=== PATIENT | male | born 1955 | race African-American/Black ===

== ENCOUNTER 2017-10-04 08:00 | Outpatient (CLI) | payer BC | END 2017-10-04 08:01 | disposition home or self-care (01) | LOC: BICULT 08:00 | PROVIDERS: ATTEND Urology | DX: N18.9 Chronic kidney disease, unspecified (principal); N40.0 Benign prostatic hyperplasia without lower urinary tract symptoms; N32.89 Other specified disorders of bladder; Z87.442 Personal history of urinary calculi | CPT/HCPCS: 76770 ==

== ENCOUNTER 2018-03-15 00:58 | Observation (INO) | payer BC ==
[2018-03-15 01:47] LABS: Bilirubin Negative (Negative); Blood, Urine Negative (Negative); Clarity CLEAR (Clear); Glucose, Urine (Dipstick) 100 mg/dL (Negative); Leukocyte Negative (Negative); Nitrite Negative (Negative); Protein, Urine (Dipstick) Negative (Neg-Trace); Specific Gravity, Urine 1.009 (1.002-1.036); Urobilinogen 0.2 mg/dL (0.2-1.0)
[2018-03-15 02:03] LABS: #Eosinphils 0.1 thou/uL (0.0-0.7); #Lymphocytes 1.1 thou/uL (1.20-3.40); #Monocytes 0.4 thou/uL (0.11-0.59); #Neutrophils 3.1 thou/uL (1.40-6.50); Hemoglobin 13.9 g/dL (14.0-18.0); Mean Corpuscular HGB CONC 34.4 g/dL (32.0-36.0); Mean Corpuscular Hemoglobin 31.2 pg (27.0-31.0); Mean Corpuscular Volume 90.9 fL (78.0-98.0); Mean Platelet Volume 9.8 fL (7.4-10.4); Platelet Count 130 thou/uL (130-400); RBC Distribution Width 11.2 % (11.5-14.5); Red Blood Cell (RBC) Count 4.44 mill/uL (4.70-6.10); White Blood Cell (WBC) Count 4.7 thou/uL (4.8-10.8)
[2018-03-15 02:14] LABS: ALT (SGPT) 18 U/L (8-55); AST (SGOT) 16 U/L (5-34); Albumin 4.1 g/dL (3.5-5.0); Alkaline Phosphatase 60 U/L (40-150); Anion Gap 13 mmol/L (10-20); BUN (Urea Nitrogen) 39 mg/dL (8.4-25.7); Bilirubin, Total 1.8 mg/dL (0.2-1.2); Calc. Creatinine Clearance 0 mL/min (70-130); Calcium 9.3 mg/dL (7.8-10.44); Carbon Dioxide 30 mmol/L (22-29); Chloride 106 mmol/L (98-107); Estimated GFR-MDRD 28; Globulin 2.2 g/dL (2.4-3.5); Glucose 126 mg/dL (70-105); Lipase 31 U/L (8-78); Potassium 4.3 mmol/L (3.5-5.1); Protein, Total 6.3 g/dL (6.0-8.3); Sodium 145 mmol/L (136-145)
[2018-03-15] MEDS ORDERED: Lidocaine Viscous Sol 2% 15 ml UD Cup ONE (03:56)
[2018-03-15] MEDS ORDERED: Ondansetron ODT 4 MG TAB SL PRN (06:00)
[2018-03-15] MEDS ORDERED: Acetaminophen 325 MG TAB PO PRN ×2 (06:00→09:29)
[2018-03-15] MEDS ORDERED: Ondansetron HCl/PF 4 MG/2 ML Vial IVP PRN ×2 (06:00→09:29)
--- NOTE | 2018-03-15 09:15 | ULT ---
PRELIMINARY REPORT/[facility]/EMERGENTY AFTER-HOURS PROCEDURE US Retroperitoneal Complete CLINICAL HISTORY: 62 years old, male; Difficulty emptying bladder; Abdominal pain; right flank pain HX kidney stones TECHNIQUE: Real-time ultrasound of the retroperitoneum (complete) with image documentation. COMPARISON: No relevant prior studies available. FINDINGS: The right kidney measures 12.6 cm longitudinally. The left kidney measures 12.9 cm longitudinally. Normal renal cortical echogenicity. Moderate right hydronephrosis. Severe left hydronephrosis. No calcified renal stones. No perinephric fluid collections. Prostate gland measures 4.0 x 3.5 x 7.8 cm. Prevoid bladder volume is 680 ml. Ureteral jets were not visualized. IMPRESSION: Moderate right hydronephrosis. Severe left hydronephrosis. Prevoid bladder volume is 680 ml. Thank you for allowing us to participate in the care of your patient. Dictated and Authenticated by: Chace Garcia MD 03/15/2018 5:06 AM Central Time ([place] & [place]) FINAL REPORT RENAL ULTRASOUND: HISTORY: Acute kidney insufficiency. COMPARISON: None. TECHNIQUE: Sagittal and transverse imaging of the kidneys performed. FINDINGS: This report is in agreement with the preliminary report by [facility]. There is evidence of bilateral hydro nephrosis, left slightly greater than right. There is also dilatation in the visualized proximal rig ht ureter. Urinary bladder is distended. Neither ureteral jet is identified. There is an enlarged prostate gla nd. POS: [facility]
[2018-03-15] MEDS ORDERED: hydrALAZINE 20 MG/ML VIAL SLOW IVP PRN (09:29)
[2018-03-15] MEDS ORDERED: Mag-Al 1200 mg/1200 mg/30 ML UDCUP PO PRN (09:29)
[2018-03-15] MEDS ORDERED: Senokot 8.6 MG TAB PO PRN (09:29)
[2018-03-15] MEDS ORDERED: Ondansetron ODT 4 MG TAB PO PRN (09:29)
[2018-03-15] MEDS ORDERED: Artificial Tears 18 DROP/0.9 ML EA EYE PRN (09:29)
[2018-03-15] MEDS ORDERED: Diabetic Tussin 200 MG/10 ML UDCUP PO PRN (09:29)
[2018-03-15] MEDS ORDERED: Loratadine 10 MG TAB PO PRN (09:29)
[2018-03-15] MEDS ORDERED: Loperamide HCl 2 MG CAP PO PRN (09:29)
[2018-03-15] MEDS ORDERED: HYDROcodone/Acetaminophen 5/325 mg Tablet PO PRN (09:29)
[2018-03-15] MEDS ORDERED: Sodium Chloride 0.65% Nasal 44 ML BOT EA NARE PRN (09:29)
[2018-03-15] MEDS ORDERED: Zolpidem Tartrate 5 MG TAB PO PRN (09:29)
[2018-03-15] MEDS ORDERED: Eucerin (Mineral Oil/Petrolatum,White) 30 gm Jar TOP PRN (09:29)
[2018-03-15] MEDS ORDERED: Milk Of Magnesia 30 ML UDCUP PO PRN (09:29)
[2018-03-15] MEDS ORDERED: Chloraseptic Spray 180 ml Bottle PO PRN (09:29)
[2018-03-15] MEDS: Sodium Chloride 0.9% 1,000 ML IV SCH ×2 (09:58→20:35)
[2018-03-15 10:06] VITALS: BMI 28.0
[2018-03-15] MEDS ORDERED: Dextrose 5% in Water 1,000 ML IV PRN (10:30)
[2018-03-15] MEDS ORDERED: HumaLOG 300 UNITS/3 ML VIAL SC PRN ×2 (10:30)
[2018-03-15] MEDS ORDERED: Dextrose 50% Abboject 50 ML SYRINGE SLOW IVP PRN (10:30)
--- NOTE | 2018-03-15 12:01 | CON ---
DATE OF CONSULTATION: 03/15/2018 HISTORY: Mr. Brody is a 62-year-old white male with known history of chronic renal failure second alfred to diabetic nephropathy and admitted for abdominal pain. He was found to have obstructive uropat hy secondary to presumed low bladder outlet obstruction. He was initially seen at the ER due to abdo tran pain. A Salazar catheter has been inserted and he has made copious urine output after insertion of the Salazar catheter. Renal ultrasound shows bilateral hydronephrosis. This patient has also a [facility] history of BPH. He is being followed up by Dr. Frankel. He has been told that he may need a TURP in the near future. We are being consulted for his acute kidney injury on top of his chronic renal failure. REVIEW OF SYSTEMS: Positive for abdominal pain. No chest pain or shortness of breath, no nausea, no vomiting. Appetite fair. Energy levels is fair. No headache, no diplopia, no gross hematuria, no dysuria, no hematochezia, no melena, no hematemesis, no sore throat, no fever or chills. HOME MEDICATIONS: NovoLog 70/30, 24 units in the morning and 20 units at night, tamsulosin 0.4 mg on ce a day, tadalafil 5 mg tab daily, aspirin 81 mg once a day, glucosamine 1 tablet a day, vitamin D3 2000 international units 1 tab daily, flaxseed daily, fish oil 1500 mg daily, multivitamin daily. PAST MEDICAL HISTORY: 1. Chronic renal failure secondary to presumed diabetic nephropathy. 2. Nephrolithiasis. 3. Benign prostatic hypertrophy. 4. Type 2 diabetes mellitus. 5. Degenerative joint disease. 6. Decreased vitamin D level. PAST SURGICAL HISTORY: Status post colonoscopy. SOCIAL HISTORY: The patient is , lives in [place]. 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 Three children. No history of smoking, alcohol occasional. No drug abuse. No bl ood transfusion. FAMILY HISTORY: No family history of ESRD. ALLERGIES: None. TRAUMA: Status post pelvic fracture/right scapular fracture secondary to a back injury. IMMUNIZATIONS: Up to date. HOSPITALIZATIONS: Please see past medical history. PHYSICAL EXAMINATION: VITAL SIGNS: Blood pressure is currently noted at 133/79, heart rate 63, respiratory rate 16, temper ature 98.4. GENERAL: Noted to be awake, alert, comfortable, not in distress. SKIN: Adequate turgor. HEENT: Pinkish conjunctivae, anicteric sclerae. NECK: No neck mass, no carotid bruits, no JVD. CHEST: No deformities. LUNGS: Clear breath sounds, no wheezing, no crackles. HEART: Normal sinus rhythm. No murmur, no gallops or rubs. ABDOMEN: Globular, soft, nontender, no masses. Positive bowel sounds. EXTREMITIES: No edema, no deformities. NEUROLOGIC: Moving all extremities. No tremors, no asterixis. IMAGIN03/15/2018 - Bilateral renal ultrasound shows the urinary bladder is distended. There is a n enlarged prostate gland and there is bilateral hydronephrosis and there is also dilatation of the v isualized proximal right ureter. LABORATORY: On 03/15/2018 - White count 4.7, hemoglobin 13.9. Sodium 145, potassium 4.2, chloride 1 06, carbon dioxide 30, BUN 39, creatinine 2.77, calcium 9.3, AST 16, ALT 18. PSA 2.8, lipase 31. 01/04/2018 - Creatinine 1.76. 07/06/2017 - Creatinine 1.44. Urinalysis, protein negative. ASSESSMENT AND PLAN: 1. Acute kidney injury - superimposed obstructive uropathy. He most likely has a low bladder outlet obstruction. Salazar catheter has been inserted. I do anticipate improvement of the renal function. 2. Chronic renal failure, unclear etiology, although diabetic nephropathy is a consideration. A luda al biopsy has been mentioned to this patient, but he is declining for the moment. There is no indication for any dialytic intervention. Continue current management. Awaiting Urology input. The patient tells me that he may need a TURP. Thank you for the consult. We will continue to follow.
--- NOTE | 2018-03-15 14:11 | HP ---
PRIMARY CARE PHYSICIAN: City call admission. REASON FOR ADMISSION: Acute on chronic kidney failure, bilateral hydronephrosis, urinary retention. HISTORY OF PRESENT ILLNESS: A 62-year-old male, who has history of benign enlargement of prostate an d diabetes type 2, who takes Flomax daily as well as Cialis daily. The patient feels that this medic ation is not controlling his BPH symptoms. Yesterday during daytime, he was having lower grade diffu se abdominal pain, more on the right side, but it was not significantly worse enough to require any a ttention. He went to work and when he returned from work around 9:00 p.m., his pain was gradually go tten worse and by midnight, his pain localized in the right side and it was more intense and he was n ot able to handle his pain and that is why he decided to go to the emergency room for evaluation. The patient had renal ultrasound in the emergency room, which showed moderate right hydronephrosis an d severe left hydronephrosis and bladder volume was 680 mL. The patient had a Salazar catheter done in the emergency room and after that significant amount of urine came out and after that the patient's abdominal pain resolved. The patient had routine blood test, which also showed acute on chronic kidn ey failure and that is why patient was decided in emergency room to admit to medical floor for monito ring. He denies any UTI symptoms. He denies any fever or chills. He denies any nausea or vomiting. He de nies any chest pain, palpitation, shortness of breath. He denies any cough. He denies any constipat ion, diarrhea, melena, or hematochezia. REVIEW OF SYSTEMS: The following complete review of systems was negative, unless otherwise mentioned in the HPI or below: Constitutional: Weight loss or gain, ability to conduct usual activities. Skin: Rash, itching. Eyes: Double vision, pain. ENT/Mouth: Nose bleeding, neck stiffness, pain, tenderness. Cardiovascular: Palpitations, dyspnea on exertion, orthopnea. Respiratory: Shortness of breath, wheezing, cough, hemoptysis, fever or night sweats. Gastrointestinal: Poor appetite, abdominal pain, heartburn, nausea, vomiting, constipation, or diarr hea. Genitourinary: Urgency, frequency, dysuria, nocturia. Musculoskeletal: Pain, swelling. Neurologic/Psychiatric: Anxiety, depression. Allergy/Immunologic: Skin rash, bleeding tendency. Please see my HPI for pertinent positive and negative. All other review of system reviewed and negat corey except as mentioned in the HPI. PAST MEDICAL HISTORY: History of nephrolithiasis, diabetes type 2, benign enlargement of prostate. PAST SURGICAL HISTORY: Tonsillectomy, wisdom tooth removal. PAST PSYCHIATRIC HISTORY: Reviewed and negative. SOCIAL HISTORY: The patient drinks alcohol socially. He denies any smoking. He denies any other ill icit drug abuse. 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 FAMILY HISTORY: No strong family history of premature coronary artery disease, stroke or cancer. EMERGENCY ROOM COURSE: Reviewed. ALLERGIES: No known drug allergy. CURRENT HOME MEDICATIONS: Flomax 0.4 mg p.o. daily, Cialis 5 mg p.o. daily, Novolin 70/30, 25 units in morning and 20 units in the evening. PHYSICAL EXAMINATION: VITAL SIGNS: On arrival, blood pressure 153/91, pulse 73, respiratory rate 16, temperature 98.2, sat uration 95% on room air, weight 99.7 kilograms. GENERAL: Patient is currently alert, awake, no obvious acute distress. HEENT: Head: Normocephalic, atraumatic. Eyes: Pupils round, reactive to light. Extraocular muscl e intact. ENT: Oropharynx within normal limits. Moist mucous membranes. No oral lesion, no pharyn geal erythema, no exudate. NECK: Supple, no JVD, no thyromegaly, no carotid bruit, no jugular venous distention. LUNGS: Clear to auscultation without any rhonchi or rales. CARDIAC: S1, S2 regular. No murmur, no gallop, no rub. ABDOMEN: Soft, bowel sounds present, nontender, nondistended. No organomegaly, no mass, no suprapub ic tenderness. BACK: Unremarkable, no CVA tenderness. EXTREMITIES: Upper extremity passive movement of all joints are normal. Lower extremities: No matthias a. Good peripheral pulsation. SKIN: No skin rash. HEMATOLOGICAL: No lymphadenopathy. PSYCHIATRIC: Normal affect. NEUROLOGIC: Nonfocal examination. SIGNIFICANT LABORATORY DATA: 1. Renal ultrasound showing moderate right hydronephrosis severe left hydronephrosis. Prevoid bladd er volume 680 mL. 2. CBC: WBC 4.7, hemoglobin 13.9, platelet 130. 3. BMP: Sodium 145, potassium 4.3, chloride 106, carbon dioxide 30, anion gap 13, BUN 39, creatinin e 2.77, glucose 126, calcium 9.3. 4. LFT: Bilirubin 1.8, AST 16, ALT 18, alkaline phosphatase 60, lipase 31. Urinalysis unremarkable . ASSESSMENT AND PLAN: 1. Acute on chronic kidney failure, baseline chronic kidney disease stage 3. This patient has posto bstructive nephropathy, currently patient has hydronephrosis and retention. After Salazar catheter, th e patient is at risk for post-obstructive diuresis and worsening of renal function and that is why ming lindsay will require admission for hydration and monitoring of post-obstructive volume. We will repeat the renal function test tomorrow. We will continue with NS at 100 mL per hour. We will avoid nephr otoxin agent. 2. Benign enlargement of prostate with urinary retention, requiring Salazar catheter. Urology consult ed. The patient may need to go home with a Salazar catheter and he will need outpatient follow up with Urology for voiding trial or the patient will need to go for TURP procedure. As patient is no longe r responding to Flomax and Cialis and he has worsening of symptoms. 3. Diabetes type 2. We will continue insulin as per sliding scale per protocol, Novolin 70/30, 25 u nits in morning and 20 units in evening will be continued. Diabetic diet will be given. 4. Acute urinary retention due to benign enlargement of prostate as mentioned above. We put a Salazar catheter in and the patient will need Salazar catheter and outpatient urology followup. 5. Bilateral hydronephrosis, left worse than right, likely due to obstructive uropathy, the patient is followed by Urology. 6. Deep venous thrombosis prophylaxis not needed because we are expecting discharge in 24-48 hours. 7. Gastrointestinal prophylaxis, Pepcid 20 mg p.o. daily. CODE STATUS: The patient is FULL CODE. The patient is making decision by himself. Disposition plan based on clinical course and renal function. Plan of care discussed with the patien t in detail. We will also continue his benign enlargement of prostate medication while in hospital w ith Flomax and Cialis.
--- NOTE | 2018-03-15 20:07 | CON ---
DATE OF CONSULTATION: 03/15/2018 CONSULTING PHYSICIAN: Dr. Hammond. CONSULTED PHYSICIAN: Raymundo Frankel M.D. REASON FOR CONSULTATION: Urinary retention with bilateral hydronephrosis and acute kidney injury. HISTORY OF PRESENT ILLNESS: Mr. Brody is a 62-year-old white male who is well known to me for a l ivan history of BPH with incomplete emptying. I have been following him for a number of years and had recommended previously to him that he should consider TURP and more aggressive treatment. He has be en reluctant to pursue this and had elected to continue on with a current medical management which snyder d consisted of Flomax and Cialis, which he stated was working quite well for him. He had a renal ult rasound done approximately 6 months ago which demonstrated no evidence of hydronephrosis, although he still did not empty his bladder completely. Unfortunately, over the past 2-3 months, the patient snyder s had worsening urinary symptoms to the point where he started having incontinence in his bed at nigh t as well as significant difficulty with his urinary stream. This culminated to yesterday when he be malena having lower abdominal pain as well as right flank pain which brought him to the emergency room w hen it became fairly severe to around a 6/10 cramping and sensation and not improving with any conser vative measures or over the counter medications. Upon arrival to the ER, he underwent an ultrasound which demonstrated moderate right hydronephrosis and severe left hydronephrosis with a bladder volume of approximately 680 mL. Salazar catheter was placed and at that time with a brisk diuresis which sub sequently became bloody with hematuria. The ER physician was concerned given the patient's acute kid lg injury on chronic kidney disease with bilateral hydronephrosis for postobstructive diuresis. The refore, he was admitted to the hospital under the medicine service for monitoring of his electrolytes and kidney function. I have been consulted for further assistance regarding his urinary retention, hydronephrosis and prosthetic issues. On my discussion with the patient, he states he is feeling muc h better. He is not having any significant discomfort with his catheter. He denies any current flan k pain, abdominal pain or nausea or vomiting, fevers or chills. As previously been discussed his uri nary symptoms have been worsening despite taking his medications, which he reports being compliant wi . ALLERGIES: None. CURRENT HOME MEDICATIONS: 1. Flomax 0.4 mg p.o. daily. 2. Cialis 5 mg p.o. daily. 3. Novolin 70/30, 25 units q.a.m. and 20 units q.p.m. PAST MEDICAL HISTORY: 1. Nephrolithiasis. 2. Type 2 diabetes. 3. Benign prostatic hypertrophy. 4. Chronic kidney disease. PAST SURGICAL HISTORY: 1. Tonsillectomy. 2. [place] tooth removal. FAMILY HISTORY: Noncontributory for BPH, prostate cancer or urinary difficulties. SOCIAL HISTORY: Patient drinks alcohol only socially. Denies any significant alcohol intake, smokin g or illicit drug use. 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 REVIEW OF SYSTEMS: A 12-point review of systems was reviewed and otherwise negative other than what was commented on the HPI. He does not endorse any current bothersome symptoms at the current time. PHYSICAL EXAMINATION: VITAL SIGNS: Temperature 98.5, pulse 74, respirations 18, blood pressure 186/77, saturation 96% on r oom air. Ins and outs have not yet been recorded on this patient. GENERAL: No apparent distress, communicative and alert. Well-nourished, well-developed. HEENT: Normocephalic, atraumatic. Sclerae are nonicteric. Pupils are symmetric and round. Moist m ucous membranes. Good dentition. Trachea midline. CARDIOVASCULAR: Regular rate and rhythm. Normal S1, S2. Symmetric pulses. CHEST: No increased work of breathing. Clear to auscultation anteriorly. Nonlabored breathing. Sy mmetric expansion of lungs. ABDOMEN: Soft, nontender, nondistended, no organomegaly. Positive bowel sounds, no hernias. No berna ound, guarding, tenderness or peritoneal signs. GENITOURINARY: Salazar catheter in place, secured with StatLock with Miguel-Aid colored urine without cl ots. EXTREMITIES: No clubbing, cyanosis or edema. MUSCULOSKELETAL: No joint deformities or joint erythema noted. Range of motion appears to be normal . No gross deformities. SKIN: Warm, dry, good turgor, no rashes or lesions. NEUROLOGIC: Cranial nerves II-XII appear grossly intact. There are no obvious focal or sensory jonnie r deficits identified. PSYCHIATRIC: Alert and oriented x3, appropriate mood and affect for situation. LABORATORY AND X-RAY FINDINGS: The full set of labs in the [facility] system, which I reviewed. Of no te, patient's white count is currently 4.7 with a hemoglobin of 13.9, creatinine is currently 2.77 wi th a blood sugar 126. Urinalysis is completely normal other than 100 glucose. Renal ultrasound done in the ER again demonstrates moderate right hydronephrosis and severe left hydronephrosis with a pre -void bladder volume of 680 mL. Ureteral jets were not visualized. ASSESSMENT AND PLAN: A 62-year-old white male with BPH with incomplete bladder emptying with urinary retention resulting in bilateral hydronephrosis and acute kidney injury on chronic kidney disease. I would recommend close monitoring of his in's and out's to ensure that he is not having significant diuresis. So, as long as his urine output remains below 3.5 liters, I think the patient can keep up adequate oral intake to make sure he does not become dehydrated. I would recommend checking electrol ytes and his kidney function in the morning which Dr. Hammond is following and can handle. From my stand point, I would recommend that he keep a Salazar catheter in for at least 7 days to allow for normalizat ion of his bladder function and resolution of his hematuria. I would like to see that his hematuria improved somewhat as it is quite red currently before going home. He does not have to have no hematu sindy, but I think it would be prudent to monitor him to ensure that he does not deform any blood clots within his catheter. Ultimately, I do agree the patient will likely need a TURP as he is failing me dical therapy with significant and potential dangers complications which may include worsening renal function or potential permanent damage to his bladder as he is diabetic and may suffer either neuroge becka or myogenic bladder failure. Some of this may have already happened at this point, but we will n ot be able to tell until we were able to perform a voiding trial and monitor him as an outpatient, wh [facility] I will continue to follow him for. I will plan for him to have a voiding trial sometime next k and we will set him up for cystoscopy subsequent to that and then set him up for TURP afterwards. I will discuss the treatment options with him during this time and have outlined the plan with him to day which he is in agreement with. He should remain on his Flomax and Cialis currently, so that he m ay be optimized for his voiding trial next week. I will continue to follow along and make recommenda tions. SUMMARY OF RECOMMENDATIONS: 1. Continue Flomax and Cialis as scheduled. 2. Continue Salazar catheter for at least 7 days. We will arrange for followup in my office for a voi d trial. 3. We would not recommend discharge until the patient's hematuria improved somewhat. He does not ne ed to be completely clear, but should be at least a translucent pink or better. 4. Will continue to follow.
[2018-03-15] MEDS ORDERED: Insulin NPH/Reg Insulin Hm 300 UNITS/3 ML VIAL SC SCH (21:00)
[2018-03-15] MEDS ORDERED: NOVOLOG SC SCH (21:30)
[2018-03-15] MEDS ORDERED: INSULIN SC SCH (21:30)
[2018-03-16 06:27] LABS: ALT (SGPT) 13 U/L (8-55); AST (SGOT) 12 U/L (5-34); Albumin 3.7 g/dL (3.5-5.0); Alkaline Phosphatase 56 U/L (40-150); Anion Gap 11 mmol/L (10-20); BUN (Urea Nitrogen) 29 mg/dL (8.4-25.7); Bilirubin, Total 2.9 mg/dL (0.2-1.2); Calc. Creatinine Clearance 48 mL/min (70-130); Calcium 8.7 mg/dL (7.8-10.44); Carbon Dioxide 29 mmol/L (22-29); Chloride 106 mmol/L (98-107); Estimated GFR-MDRD 34; Globulin 2.1 g/dL (2.4-3.5); Glucose 258 mg/dL (70-105); Potassium 4.4 mmol/L (3.5-5.1); Protein, Total 5.8 g/dL (6.0-8.3); Sodium 142 mmol/L (136-145)
[2018-03-16 06:35] LABS: #Basophils 0.1 thou/uL (0.0-0.2); #Eosinphils 0.1 thou/uL (0.0-0.7); #Lymphocytes 1.2 thou/uL (1.20-3.40); #Monocytes 0.5 thou/uL (0.11-0.59); #Neutrophils 3.7 thou/uL (1.40-6.50); %Basophils 1.1 % (0.0-1.0); %Eosinophils 1.9 % (0.0-10.0); %Monocytes 9.1 % (0.0-10.0); Hemoglobin 13.8 g/dL (14.0-18.0); Mean Corpuscular HGB CONC 34.2 g/dL (32.0-36.0); Mean Corpuscular Hemoglobin 31.2 pg (27.0-31.0); Mean Corpuscular Volume 91.1 fL (78.0-98.0); Mean Platelet Volume 10.3 fL (7.4-10.4); Platelet Count 122 thou/uL (130-400); RBC Distribution Width 11.2 % (11.5-14.5); Red Blood Cell (RBC) Count 4.44 mill/uL (4.70-6.10); White Blood Cell (WBC) Count 5.6 thou/uL (4.8-10.8)
[2018-03-16] MEDS: Sodium Chloride 0.9% 1,000 ML IV SCH (06:45)
[2018-03-16] MEDS ORDERED: Famotidine 20 MG TAB PO SCH (09:00)
[2018-03-16] MEDS ORDERED: TADALAFIL 6 MG PO SCH ×2 (09:00)
[2018-03-16] MEDS ORDERED: Tamsulosin HCl 0.4 MG CAP PO SCH (09:00)
[2018-03-16] MEDS ORDERED: Insulin NPH/Reg Insulin Hm 300 UNITS/3 ML VIAL SC SCH (09:00)
--- NOTE | 2018-03-16 09:32 | PDOC.PN ---
- Subjective Encounter Start Date: 03/16/18 Encounter Start Time: 07:30 Patient seen and examined. No new complaints. No overnight events - Objective Resuscitation Status: Resuscitation Status FULL:Full Resuscitation MAR Reviewed: Yes Vital Signs & Weight: Vital Signs (12 hours) Temp Pulse Resp BP Pulse Ox 03/16/18 07:40 98.1 F 64 12 135/88 96 03/16/18 04:00 98.5 F 68 16 147/81 H 94 L 03/16/18 00:00 98.1 F 63 16 129/81 95 Weight Weight 224 lb 11.2 oz I&O: 03/15/18 03/16/18 03/17/18 06:59 06:59 06:59 Intake Total 2630 1920 Output Total 3800 1300 Balance -1170 620 Result Diagrams: 03/16/18 05:02 03/16/18 05:02 Additional Labs: Accuchecks 03/16/18 03/15/18 03/15/18 06:09 20:36 15:12 POC Glucose 253 H 308 H 263 H 03/15/18 11:03 POC Glucose 317 H Phys Exam - Physical Examination Constitutional: NAD HEENT: PERRLA, moist MMs, sclera anicteric Neck: no JVD, supple Respiratory: no wheezing, no rales, no rhonchi Cardiovascular: RRR, no significant murmur, no rub Gastrointestinal: soft, non-tender, no distention, positive bowel sounds Musculoskeletal: no edema, pulses present Neurological: non-focal, normal sensation Lymphatic: no nodes Psychiatric: normal affect, A&O x 3 Skin: no rash, normal turgor Dx/Plan (1) Acute renal failure superimposed on stage 3 chronic kidney disease Code(s): N17.9 - ACUTE KIDNEY FAILURE, UNSPECIFIED; N18.3 - CHRONIC KIDNEY DISEASE, STAGE 3 (MODERATE) Status: Acute (2) Hydronephrosis, bilateral Code(s): N13.30 - UNSPECIFIED HYDRONEPHROSIS Status: Acute (3) Urinary retention due to benign prostatic hyperplasia Code(s): N40.1 - BENIGN PROSTATIC HYPERPLASIA WITH LOWER URINARY TRACT SYMP; R33.8 - OTHER RETENTION OF URINE Status: Acute (4) Diabetes type 2, controlled Code(s): E11.9 - TYPE 2 DIABETES MELLITUS WITHOUT COMPLICATIONS Status: Chronic - Plan cont current plan of care * medication reviewed as below * symptomatic treatment * medically stable for discharge * discharge medication reconciliation done. * see discharge summery for details. Review of Systems - Review of Systems Eyes: negative: Pain, Vision Change, Conjunctivae Inflammation, Eyelid Inflammation, Redness, Other ENT: negative: Ear Pain, Ear Discharge, Nose Pain, Nose Discharge, Nose Congestion, Mouth Pain, Mouth Swelling, Throat Pain, Throat Swelling, Other Respiratory: negative: Cough, Dry, Shortness of Breath, Hemoptysis, SOB with Excertion, Pleuritic Pain, Sputum, Wheezing Cardiovascular: negative: chest pain, palpitations, orthopnea, paroxysmal nocturnal dyspnea, edema, light headedness, other Gastrointestinal: negative: Nausea, Vomiting, Abdominal Pain, Diarrhea, Constipation, Melena, Hematochezia, Other Genitourinary: negative: Dysuria, Frequency, Incontinence, Hematuria, Retention , Other Musculoskeletal: negative: Neck Pain, Shoulder Pain, Arm Pain, Back Pain, Hand Pain, Leg Pain, Foot Pain, Other Skin: negative: Rash, Lesions, Florentin, Bruising, Other - Medications/Allergies Allergies/Adverse Reactions: Allergies Allergy/AdvReac Type Severity Reaction Status Date / Time No Known Allergies Allergy Verified 03/15/18 10:31 Medications: Current Medications Acetaminophen (Tylenol) 650 mg PO Q4H PRN PRN Reason: Headache/Fever or Pain Hydrocodone Bitart/Acetaminophen ([place] 5/325) 1 tab PO Q4H PRN PRN Reason: Moderate Pain (4-6) Al Hydroxide/Mg Hydroxide (Maalox) 30 ml PO Q6H PRN PRN Reason: Heartburn or Indigestion Artificial Tears (Tears Naturale) 0 drop EA EYE PRN PRN PRN Reason: Dry Eyes Dextrose/Water (Dextrose 50%) 25 gm SLOW IVP PRN PRN PRN Reason: Hypoglycemia Famotidine (Pepcid) 20 mg PO DAILY [facility] Last Admin: 03/16/18 08:48 Dose: 20 mg Glucagon (Glucagon) 1 mg IM PRN PRN PRN Reason: Hypoglycemia Guaifenesin (Robitussin Sf) 200 mg PO Q4H PRN PRN Reason: Cough Hydralazine HCl (Apresoline) 10 mg SLOW IVP Q4H PRN PRN Reason: Systolic BP > 180 Sodium Chloride (Normal Saline 0.9%) 1,000 mls @ 100 mls/hr IV .Q10H [facility] Last Admin: 03/16/18 06:45 Dose: 1,000 mls Dextrose/Water (D5w) 1,000 mls @ 0 mls/hr IV .Q0M PRN; As Directed PRN Reason: Hypoglycemia Insulin Human Isoph/Insulin Regular (Humulin 70/30) 20 units SC HS [facility] Last Admin: 03/15/18 21:11 Dose: Not Given Insulin Human Isoph/Insulin Regular (Humulin 70/30) 25 units SC QAM [facility] Last Admin: 03/16/18 08:49 Dose: Not Given Insulin Human Lispro (Humalog) 0 units SC .MODERATE SLIDING SC PRN PRN Reason: Moderate Correctional Scale Last Admin: 03/15/18 11:52 Dose: 8 unit Insulin Human Lispro (Humalog) 0 units SC .BEDTIME SLIDING SC PRN PRN Reason: Bedtime Correctional Scale Loperamide HCl (Imodium) 2 mg PO PRN PRN PRN Reason: Diarrhea/Loose Stools Loratadine (Claritin) 10 mg PO DAILYPRN PRN PRN Reason: Sinus Symptoms Magnesium Hydroxide (Milk Of Magnesium) 30 ml PO DAILYPRN PRN PRN Reason: Constipation Mineral Oil/White Petrolatum (Eucerin Cream) 0 gm TOP BIDPRN PRN PRN Reason: Dry Skin Ondansetron HCl (Zofran Odt) 4 mg PO Q6H PRN PRN Reason: Nausea/Vomiting Ondansetron HCl (Zofran) 4 mg IVP Q6H PRN PRN Reason: Nausea/Vomiting Phenol (Chloraseptic [place] 180 Ml Bot) 0 ml PO PRN PRN PRN Reason: Sore Throat Senna (Senokot) 2 tab PO HSPRN PRN PRN Reason: Constipation Sodium Chloride ([place] Nasal [place] 0.65%) 0 ml EA NARE QIDPRN PRN PRN Reason: Nasal Congestion Sodium Chloride (Flush - Normal Saline) 10 ml IVF Q12HR [facility] Last Admin: 03/16/18 08:49 Dose: Not Given Sodium Chloride (Flush - Normal Saline) 10 ml IVF PRN PRN PRN Reason: Saline Flush Tamsulosin HCl (Flomax) 0.4 mg PO DAILY [facility] Last Admin: 03/16/18 08:48 Dose: 0.4 mg Zolpidem Tartrate (Ambien) 5 mg PO HSPRN PRN PRN Reason: Insomnia
--- NOTE | 2018-03-16 10:36 | DIS ---
DATE OF ADMISSION: 03/15/2018 DATE OF DISCHARGE: 03/16/2018 PRIMARY CARE PHYSICIAN: [facility] call admission. DISCHARGE DISPOSITION: Home. PRIMARY DISCHARGE DIAGNOSES: Acute kidney failure on top of chronic kidney disease stage 3, bilatera l hydronephrosis, urinary retention due to benign enlargement of prostate. SECONDARY DISCHARGE DIAGNOSES: Diabetes type 2, benign enlargement of prostate. PRIMARY PROCEDURE AND OPERATION: None. RADIOLOGICAL INVESTIGATION: Renal ultrasound showed bilateral hydronephrosis, left more than right. SIGNIFICANT LABORATORY DATA: WBC 5.6, hemoglobin 13.8, platelet 122. Sodium 142, creatinine 2.35. LFT normal. Urinalysis unremarkable. Urine culture negative. DISCHARGE MEDICATIONS: Flomax 0.4 mg p.o. daily, Cialis 5 mg p.o. daily, Novolin 70/30, 25 units in the morning and 20 units at bedtime. CONTRAINDICATIONS: None. CODE STATUS: FULL CODE. INPATIENT CONSULTANTS: Dr. Hammond was consulted for renal failure. Dr. Frankel was consulted for benig n enlargement of prostate. TEST RESULTS PENDING ON DISCHARGE: None. ALLERGIES: No known drug allergy. DISCHARGE PLAN: Post hospital, the patient will follow up with primary care physician. The patient will make appointment with Dr. Frankel in 1 week. HOSPITAL COURSE: The patient is a 62-year-old male who has history of benign enlargement of prostate . He was on oral medication for that. He came to ER for abdominal pain, which has gradually gotten worse. The patient was admitted by me. Please see my HPI for further details. The patient had acut e urinary retention and after Salazar catheter, his abdominal pain improved. He had mild hematuria bec ause of bladder distention. We did ultrasound kidney, which showed moderate right hydronephrosis and severe left hydronephrosis. We consulted Urology and they recommended outpatient surgical procedure after a week or two. The patient's hematuria is clearing up and his renal function is also improvin g towards his baseline. While in hospital, we gave him enough IV fluid to prevent postobstructive di uresis and renal failure. The patient is also feeling much better. He was given instruction about Salazar care. The patient perico l follow up with Dr. Frankel after discharge for outpatient surgery. Patient is seen and examined at bedside today. Please see my progress note from today for further de tail.
[2018-03-16 11:51] VITALS: BP 149/82; TEMP 98.2
== END 2018-03-16 13:25 | disposition home or self-care (01) ==
LOC: ERS 00:58 → SURG A 09:07
PROVIDERS: ADMIT Internal Medicine; ATTEND Internal Medicine
DX: N13.30 Unspecified hydronephrosis (principal); E11.22 Type 2 diabetes mellitus with diabetic chronic kidney disease; N18.3 Chronic kidney disease, stage 3 (moderate); N17.9 Acute kidney failure, unspecified; N40.1 Benign prostatic hyperplasia with lower urinary tract symptoms; R33.8 Other retention of urine; M19.90 Unspecified osteoarthritis, unspecified site; E55.9 Vitamin D deficiency, unspecified; Z87.442 Personal history of urinary calculi; Z79.4 Long term (current) use of insulin; Z79.82 Long term (current) use of aspirin; Z79.899 Other long term (current) drug therapy
CPT/HCPCS: 36415; 36416; 51702; 76770; 80053; 81003; 83690; 85025; 87086; 96360; 96361; A4216; G0378; J0360

== ENCOUNTER 2018-03-23 14:50 | Outpatient (CLI) | payer BC ==
[2018-03-23 15:55] LABS: Hemoglobin 13.4 g/dL (14.0-18.0); Mean Corpuscular HGB CONC 34.9 g/dL (32.0-36.0); Mean Corpuscular Hemoglobin 31.5 pg (27.0-31.0); Mean Corpuscular Volume 90.2 fL (78.0-98.0); Mean Platelet Volume 10.2 fL (7.4-10.4); Platelet Count 155 thou/uL (130-400); RBC Distribution Width 11.2 % (11.5-14.5); Red Blood Cell (RBC) Count 4.26 mill/uL (4.70-6.10); White Blood Cell (WBC) Count 6.2 thou/uL (4.8-10.8)
[2018-03-23 16:01] LABS: PTT 28.4 SEC (22.9-36.1); Prothrombin Time 13.6 SEC (12.0-14.7)
[2018-03-23 16:02] LABS: Bilirubin Negative (Negative); Blood, Urine Large (Negative); Clarity CLEAR (Clear); Glucose, Urine (Dipstick) Negative (Negative); Leukocyte Trace (Negative); Nitrite Negative (Negative); Protein, Urine (Dipstick) 30 mg/dL (Neg-Trace); Specific Gravity, Urine 1.011 (1.002-1.036); Urobilinogen 0.2 mg/dL (0.2-1.0)
[2018-03-23 16:07] LABS: Bacteria/HPF None Seen HPF (None Seen); Hyaline Casts/LPF 0-3 HYALINE CAST LPF (0-3 Hyaline); Pathc Cast-AUWi Flag 0.29 (0-2.49); RBC/HPF GREATER THAN 50-TNTC HPF (0-3); Squamous Epithelial None Seen HPF (0-3); WBC/HPF 0-3 HPF (0-3)
[2018-03-23 16:14] LABS: Anion Gap 9 mmol/L (10-20); BUN (Urea Nitrogen) 27 mg/dL (8.4-25.7); Calc. Creatinine Clearance 0 mL/min (70-130); Carbon Dioxide 31 mmol/L (22-29); Chloride 103 mmol/L (98-107); Estimated GFR-MDRD 37; Glucose 119 mg/dL (70-105); Sodium 139 mmol/L (136-145)
--- NOTE | 2018-03-25 14:31 | EKG ---
Test Reason : Blood Pressure : / mmHG Vent. Rate : 071 BPM Atrial Rate : 071 BPM P-R Int : 176 ms QRS Dur : 090 ms QT Int : 396 ms P-R-T Axes : 065 049 032 degrees QTc Int : 430 ms Normal sinus rhythm Normal ECG No previous ECGs available Confirmed by DR. Sofie KEYES ([id number]) on 03/25/2018 2:31:14 PM Referred By: TIFFANY Confirmed By:DR. Sofie KEYES
== END 2018-03-23 14:51 | disposition home or self-care (01) ==
LOC: LABBT 14:50
PROVIDERS: ATTEND Urology
DX: Z01.818 Encounter for other preprocedural examination (principal); N40.1 Benign prostatic hyperplasia with lower urinary tract symptoms; R33.9 Retention of urine, unspecified
CPT/HCPCS: 80048; 81001; 85027; 85610; 85730; 86850; 86900; 86901; 87086; 93005; 93010

== ENCOUNTER 2018-03-29 10:33 | Observation (INO) | payer BC ==
[2018-03-23 15:23] VITALS: BMI 27.5
[2018-03-29] MEDS ORDERED: Levofloxacin 500 mg/D5W 100 ml Premix Bag ONE (11:14)
[2018-03-29] MEDS ORDERED: Midazolam HCl 2 mg/2 ml Vial ONE (11:41)
[2018-03-29] MEDS ORDERED: Fentanyl 100 MCG/2 ML VIAL ONE ×2 (11:49→14:01)
[2018-03-29] MEDS ORDERED: Hyoscyamine Sulfate SL 0.125 mg Tablet SL PRN (13:21)
[2018-03-29] MEDS ORDERED: diphenhydrAMINE 25 MG CAP PO PRN (13:21)
[2018-03-29] MEDS ORDERED: Ondansetron HCl/PF 4 MG/2 ML Vial IVP PRN ×2 (13:21→13:41)
[2018-03-29] MEDS ORDERED: Dextrose 50% Abboject 50 ML SYRINGE SLOW IVP PRN (13:21)
[2018-03-29] MEDS ORDERED: Oxybutynin 5 MG TAB PO PRN (13:21)
[2018-03-29] MEDS ORDERED: Mag-Al 1200 mg/1200 mg/30 ML UDCUP PO PRN (13:21)
[2018-03-29] MEDS ORDERED: Bisacodyl 10 MG SUPP PR PRN (13:21)
[2018-03-29] MEDS ORDERED: Dextrose 5% in Water 1,000 ML IV PRN (13:21)
[2018-03-29] MEDS ORDERED: Acetaminophen 500 MG TAB PO PRN (13:21)
[2018-03-29] MEDS ORDERED: B & O ONE (13:21)
[2018-03-29] MEDS ORDERED: hydrALAZINE 20 MG/ML VIAL SLOW IVP PRN (13:21)
[2018-03-29] MEDS ORDERED: traMADol HCl 50 MG TAB PO PRN (13:25)
[2018-03-29] MEDS ORDERED: Promethazine HCl 25 MG/ML VIAL SLOW IVP PRN (13:41)
[2018-03-29] MEDS ORDERED: Promethazine HCl 25 MG/ML VIAL IM PRN (13:41)
[2018-03-29 14:15] LABS: Anion Gap 14 mmol/L (10-20); BUN (Urea Nitrogen) 30 mg/dL (8.4-25.7); Calc. Creatinine Clearance 58 mL/min (70-130); Calcium 8.8 mg/dL (7.8-10.44); Carbon Dioxide 27 mmol/L (22-29); Chloride 104 mmol/L (98-107); Estimated GFR-MDRD 36; Glucose 313 mg/dL (70-105); Potassium 5.1 mmol/L (3.5-5.1); Sodium 140 mmol/L (136-145)
[2018-03-29] MEDS ORDERED: PROPOFOL 200 MG/20 ML VIAL ONE (14:22)
[2018-03-29] MEDS ORDERED: Ondansetron HCl/PF 4 MG/2 ML Vial ONE (14:22)
[2018-03-29] MEDS ORDERED: Lidocaine 1% PF 5 ML VIAL ONE (14:22)
--- NOTE | 2018-03-29 16:34 | OP ---
DATE OF SURGERY: 03/29/2018 SERVICE: Urology. SURGEON: Raymundo Frankel M.D. PREOPERATIVE DIAGNOSIS: Benign prostatic hypertrophy with urinary retention. POSTOPERATIVE DIAGNOSIS: Benign prostatic hypertrophy with urinary retention. PROCEDURE PERFORMED: Transurethral vaporization of the prostate. INDICATIONS FOR PROCEDURE: Mr. Brody is a 62-year-old white male who has a long history of BPH wi th incomplete emptying. I have been managing him medically and he has been able to urinate; however, he ended up with worsening urinary symptoms and urinary retention with acute kidney injury. He has a Salazar catheter placed and we have elected to proceed forward with more aggressive treatment, which would be a transurethral vaporization of the prostate in his case. All risks and the benefits of the surgery have been discussed and he has agreed to proceed forward. DESCRIPTION OF PROCEDURE: After identification of his armband and verification of consent, the patie nt was brought back to the operating room. He underwent general anesthesia with an LMA. He was then placed in dorsal lithotomy position with all pressure points padded and SCDs on. He was then preppe d and draped in usual sterile fashion. After appropriate timeout, a lubricated 26 Green[place]ic resectoscop e sheath with visual obturator was placed through the urethra with ease. The prostate was hyperemic and the bladder demonstrated significant trabeculation with multiple cellules and diffuse inflammatio n from indwelling Salazar catheter. Both ureters were in their orthotopic location. The visual obturat or was switched out for the bipolar vaporization button. The vaporization was carried out circumfere ntially around the prostate from the bladder neck to the verumontanum with 5 and 7 o'clock, relaxing incision was made on the bladder neck. Vaporization was carried out to close to the capsule without penetrating through the capsule at any point. The prostate was then wide open at this point, meticul ous hemostasis was performed and the bladder was drained and refilled and no additional bleeding was noted after hemostasis completion. Both ureters were reinspected and found to be unharmed in their o rthotopic location. The prostate and bladder neck were wide open. Satisfied, the resectoscope was r emoved and a 22-Greenlandic three-way Salazar catheter was placed with ease into the patient's bladder, 30 m L of sterile water placed into the balloon and CBI initiated. A 16-A B&O suppository was placed in t he rectum. He was then taken out of lithotomy, awakened and taken to PACU for recovery in stable con dition. COMPLICATIONS: None. ESTIMATED BLOOD LOSS: Minimal. RETAINED TUBES AND DRAINS: A 22-Greenlandic three-way Salazar catheter on CBI. SPECIMENS: None. DISPOSITION: Patient will be kept in the hospital overnight for CBI. We will plan a voiding trial i n the morning and then discharge afterwards.
--- NOTE | 2018-03-29 16:46 | ULT ---
THYROID ULTRASOUND: History: 62-year-old male with history of thyroid mass. Right lobe of the thyroid measures 5.5 x 2.- x 1.7 cm. The left lobe measures 5.3 x 1.8 x 1.8 cm. The isthmus is 0.3 cm in thickness. No solid or cystic nodules noted within either the right or left lobes of the thyroid. IMPRESSION: Unremarkable thyroid ultrasound. No thyromegaly or thyroid nodule or mass. POS: DEAN
[2018-03-29] MEDS: HumaLOG 300 UNITS/3 ML VIAL SC PRN (17:17)
[2018-03-29] MEDS ORDERED: Insulin NPH/Reg Insulin Hm 300 UNITS/3 ML VIAL SC SCH ×2 (21:00→21:15)
[2018-03-29] MEDS: Docusate 100 MG CAP PO SCH (21:25)
[2018-03-30 04:29] LABS: #Basophils 0.1 thou/uL (0.0-0.2); #Eosinphils 0.1 thou/uL (0.0-0.7); #Monocytes 0.5 thou/uL (0.11-0.59); #Neutrophils 3.8 thou/uL (1.40-6.50); %Basophils 1.1 % (0.0-1.0); %Eosinophils 1.4 % (0.0-10.0); %Lymphocytes 18.9 % (21.0-51.0); %Monocytes 9.5 % (0.0-10.0); Hemoglobin 13.5 g/dL (14.0-18.0); Mean Corpuscular HGB CONC 34.5 g/dL (32.0-36.0); Mean Corpuscular Hemoglobin 31.4 pg (27.0-31.0); Mean Corpuscular Volume 90.8 fL (78.0-98.0); Mean Platelet Volume 9.1 fL (7.4-10.4); Platelet Count 160 thou/uL (130-400); RBC Distribution Width 11.5 % (11.5-14.5); Red Blood Cell (RBC) Count 4.32 mill/uL (4.70-6.10); White Blood Cell (WBC) Count 5.5 thou/uL (4.8-10.8)
[2018-03-30 04:53] LABS: Anion Gap 10 mmol/L (10-20); BUN (Urea Nitrogen) 27 mg/dL (8.4-25.7); Calc. Creatinine Clearance 64 mL/min (70-130); Calcium 9.2 mg/dL (7.8-10.44); Carbon Dioxide 32 mmol/L (22-29); Chloride 103 mmol/L (98-107); Estimated GFR-MDRD 40; Glucose 240 mg/dL (70-105); Potassium 4.4 mmol/L (3.5-5.1); Sodium 141 mmol/L (136-145)
[2018-03-30] MEDS: HumaLOG 300 UNITS/3 ML VIAL SC PRN ×2 (06:36→12:50)
[2018-03-30] MEDS: Docusate 100 MG CAP PO SCH (09:18)
[2018-03-30] MEDS ORDERED: Levofloxacin 500 mg/D5W 250 MG in Premix Bag 1 BAG IVPB SCH (11:30)
[2018-03-30] MEDS ORDERED: Lidocaine 2% Jelly 5 ML TUBE TOP SCH (15:15)
[2018-03-30 15:21] VITALS: BP 127/77; TEMP 99
--- NOTE | 2018-03-30 16:22 | PRG ---
DATE OF SERVICE: 03/30/2018 SUBJECTIVE: The patient states he is doing very well this morning. He has no complaints. No bladde r spasms. No nausea, vomiting, or chest pain. His CBI was turned off this morning. OBJECTIVE: VITAL SIGNS: Temperature 98.5, pulse 72, respirations 16, blood pressure 136/82, saturation 96% on r oom air. GENERAL: No apparent distress. CARDIOVASCULAR: Regular rate and rhythm. ABDOMEN: Soft, nontender, nondistended. Positive bowel sounds. GENITOURINARY: Salazar catheter in place, draining a translucent pink urine without clots. EXTREMITIES: No clubbing, cyanosis or edema. LABORATORY DATA: The full set of labs are in the [employer] system, which I have reviewed. Of note, t he patient's white count is 5.5 and hemoglobin of 13.5. Creatinine is stable at 1.73. ASSESSMENT AND PLAN: A 62-year-old white male status post transurethral vaporization of prostate wit h prior urinary retention. On postoperative day 1, we will plan a voiding trial and serial urine col lection. Based on his PVR and his ability to void, we will decide whether or not he needs a Salazar ca theter replaced. I will plan to see him back in 1 week if he has a catheter placed or 2-3 weeks if h e is able to void on his own.
[2018-03-30] MEDS ORDERED: Insulin NPH/Reg Insulin Hm 300 UNITS/3 ML VIAL SC SCH (21:00)
--- NOTE | 2018-03-30 23:35 | DIS ---
DATE OF ADMISSION: 03/29/2018 DATE OF DISCHARGE: 03/30/2018 ADMITTING PHYSICIAN: Raymundo Frankel M.D. DISCHARGING PHYSICIAN: Raymundo Frankel M.D. ADMITTING DIAGNOSIS: Benign prostatic hypertrophy with urinary retention. DISCHARGE DIAGNOSES: Benign prostatic hypertrophy with urinary retention. PROCEDURE PERFORMED WHILE INPATIENT: Transurethral vaporization of the prostate. BRIEF HISTORY OF PRESENT ILLNESS: Mr. Brody is a 62-year-old white male with a history of BPH and urinary retention resulting in acute kidney injury with chronic kidney disease. He does have BPH wi th obstruction and we elected to try urethral vaporization in order to allow him to urinate again. H e is now coming in for this procedure today. Full H&P can be found in the scan portion of the [employer] system. HOSPITAL COURSE: After surgery (please see operative note for details) patient was kept in the hospi jina in observation for hematuria and CBI. He did have an abnormality on his thyroid on exam during a nesthesia. Therefore, we obtained a thyroid ultrasound which came back normal. His CBI was very max ar and CBI was held in the morning. His urine was only a light pink, so he underwent a void trial. Unfortunately, the patient could only void small amounts with a PVR of 396 mL, we elected to replace his Salazar catheter and he was discharged home with a Salazar. DISPOSITION: Discharge to home. DISCHARGE CONDITION: Good. Discharge will be done with a Salazar catheter. FOLLOWUP: Will be in 1 week for a void trial. Discharge medications and instructions are included in the discharge planning section of [facility].
== END 2018-03-30 16:42 | disposition home or self-care (01) ==
LOC: SDC 10:33 → SURG B 14:27
PROVIDERS: ADMIT Urology; ATTEND Urology
PROC: 0V508ZZ Destruction of Prostate, Via Natural or Artificial Opening Endoscopic (ICD-10-PCS; principal; 2018-03-29)
DX: N40.1 Benign prostatic hyperplasia with lower urinary tract symptoms (principal); R33.8 Other retention of urine; E11.22 Type 2 diabetes mellitus with diabetic chronic kidney disease; N18.9 Chronic kidney disease, unspecified; N32.89 Other specified disorders of bladder; R31.0 Gross hematuria; Z79.4 Long term (current) use of insulin; Z79.899 Other long term (current) drug therapy
CPT/HCPCS: 36415; 36416; 51702; 76536; 80048; 85025; G0378; J1956; J2001; J2250; J2405; J2704; J3010

== ENCOUNTER 2018-04-04 22:29 | Emergency (ER) | payer BC | END 2018-04-04 23:40 | disposition home or self-care (01) | LOC: SCSER 22:29 | DX: N40.1 Benign prostatic hyperplasia with lower urinary tract symptoms (principal); N13.8 Other obstructive and reflux uropathy; R33.9 Retention of urine, unspecified; E11.9 Type 2 diabetes mellitus without complications | CPT/HCPCS: 51702 ==

== ENCOUNTER 2018-04-18 21:57 | Emergency (ER) | payer BC ==
[2018-04-18 22:55] LABS: Clarity Cloudy (Clear); Glucose, Urine (Dipstick) Negative (Negative); Nitrite Negative (Negative)
[2018-04-18 22:59] LABS: Specific Gravity, Urine 1.022 (1.002-1.036)
[2018-04-18 23:00] LABS: Bilirubin Unable to Interpret (Negative); Blood, Urine Large (Negative); Leukocyte Unable to Interpret (Negative); Urobilinogen UNABLE TO INTERPRET mg/dL (0.2-1.0)
[2018-04-18 23:02] LABS: Protein, Urine (Dipstick) 300 mg/dL (Neg-Trace)
[2018-04-18 23:06] LABS: Bacteria/HPF Rare-Few HPF (None Seen); Crystals/HPF None Seen HPF (Negative); Hyaline Casts/LPF NONE SEEN LPF (0-3 Hyaline); RBC/HPF GREATER THAN 50-TNTC HPF (0-3); Squamous Epithelial 0-3 HPF (0-3); WBC/HPF 21-50 HPF (0-3)
== END 2018-04-18 23:20 | disposition home or self-care (01) ==
LOC: SCSER 21:57
DX: R31.9 Hematuria, unspecified (principal); E11.9 Type 2 diabetes mellitus without complications; Z87.442 Personal history of urinary calculi
CPT/HCPCS: 81003; 81015; 99283

== ENCOUNTER 2020-10-26 14:51 | Outpatient (CLI) | payer BC ==
--- NOTE | 2020-10-26 16:08 | ULT ---
RENAL ULTRASOUND: History: Chronic kidney disease. FINDINGS: Right kidney measures 10.6 cm length. No mass or hydronephrosis. Cortical thickness and echogenicity appears normally preserved. The left kidney is poorly imaged due to overlying bowel as. As visualized, the left kidney measures 1 1 cm in length and shows no evidence of hydronephrosis or mass. Cortical echogenicity and thickness a ppears preserved. The urinary bladder is mildly distended. There is evidence of mild bladder wall thickening. Post void image was obtained and there is no significant emptying of the bladder. Post void bladder v olume recorded at 390 cc. IMPRESSION: 1. Unremarkable renal ultrasound. 2. Urinary bladder shows bladder wall thickening. There is poor emptying noted on the post void exam. POS: AGW
== END 2020-10-26 14:52 | disposition home or self-care (01) ==
LOC: BICULT 14:51
PROVIDERS: ATTEND Internal Medicine Nephrology
DX: N18.30 Chronic kidney disease, stage 3 unspecified (principal); N32.89 Other specified disorders of bladder
CPT/HCPCS: 76770

== ENCOUNTER 2022-12-22 16:31 | Outpatient (CLI) | payer MEDICARE, OTHER ==
[2022-12-22 17:06] LABS: Hemoglobin 14.3 g/dL (13.5-17.5); Mean Corpuscular HGB CONC 33.7 g/dL (32.0-36.0); Mean Corpuscular Hemoglobin 30.6 pg (27.0-33.0); Mean Corpuscular Volume 90.6 fl (81.2-95.1); Mean Platelet Volume 10.7 fl (7.4-10.4); Platelet Count 207 10x3/uL (150-450); RBC Distribution Width 12.5 % (11.5-14.5); Red Blood Cell (RBC) Count 4.68 10x6/uL (4.32-5.72); White Blood Cell (WBC) Count 5.9 10x3/uL (3.5-10.5)
[2022-12-22 17:15] LABS: INR-International Normal Ratio 0.9; Prothrombin Time 10.1 sec (9.5-12.1)
[2022-12-22 17:30] LABS: Anion Gap 14 mmol/L (10-20); BUN (Urea Nitrogen) 27 mg/dL (8.4-25.7); Calc. Creatinine Clearance 0 mL/min (70-130); Calcium 8.9 mg/dL (7.8-10.44); Carbon Dioxide 29 mmol/L (23-31); Chloride 103 mmol/L (98-107); Estimated GFR 45; Glucose 90 mg/dL (80-115); Potassium 4.4 mmol/L (3.5-5.1); Sodium 142 mmol/L (136-145)
== END 2022-12-22 16:32 | disposition home or self-care (01) ==
LOC: LABBT 16:31
PROVIDERS: ATTEND Urology
DX: Z01.812 Encounter for preprocedural laboratory examination (principal); N40.1 Benign prostatic hyperplasia with lower urinary tract symptoms; N20.0 Calculus of kidney; N52.01 Erectile dysfunction due to arterial insufficiency; N18.31 Chronic kidney disease, stage 3a; N36.5 Urethral false passage
CPT/HCPCS: 80048; 85027; 85610; 85730; 87086; 93005; 93010

== ENCOUNTER 2022-12-29 06:09 | Day surgery (SDC) | payer MEDICARE ==
[2022-12-27 14:21] VITALS: BMI 27.5
[2022-12-29] MEDS ORDERED: Dexmedetomidine 200 MCG/2 ML VIAL ONE (06:27)
[2022-12-29] MEDS ORDERED: fentaNYL PF 100 MCG/2 ML SYRINGE ONE (06:27)
[2022-12-29] MEDS ORDERED: PHENYLEPHRINE-NS 100 MCG/ML 10 ML SYRINGE ONE (06:27)
[2022-12-29] MEDS ORDERED: Lidocaine 1% MPF 2 ML VIAL ONE (06:32)
[2022-12-29] MEDS ORDERED: Levofloxacin 500 mg/D5W 100 ml Premix Bag ONE (06:33)
[2022-12-29] MEDS ORDERED: Midazolam HCl 2 mg/2 ml Vial ONE (07:25)
[2022-12-29] MEDS ORDERED: Metoclopramide HCl 10 MG/2 ML VIAL ONE (07:55)
[2022-12-29] MEDS ORDERED: Phenylephrine 10 MG/ML VIAL ONE (07:55)
[2022-12-29] MEDS ORDERED: PROPOFOL 200 MG/20 ML VIAL ONE (07:55)
[2022-12-29] MEDS ORDERED: Lidocaine 1% PF 5 ML VIAL ONE (07:55)
[2022-12-29] MEDS ORDERED: Dexamethasone 20 MG/5 ML VIAL ONE (07:55)
[2022-12-29] MEDS ORDERED: Ondansetron PF 4 MG/2 ML Vial ONE (07:55)
[2022-12-29] MEDS ORDERED: Oxybutynin 5 MG TAB ONE (09:16)
[2022-12-29] MEDS ORDERED: Phenazopyridine HCl 100 MG TAB ONE (09:16)
== END 2022-12-29 11:05 | disposition home or self-care (01) ==
LOC: SDC 06:09
PROVIDERS: ATTEND Urology
PROC: 0VT08ZZ Resection of Prostate, Via Natural or Artificial Opening Endoscopic (ICD-10-PCS; principal; 2022-12-29)
DX: N40.1 Benign prostatic hyperplasia with lower urinary tract symptoms (principal); N13.8 Other obstructive and reflux uropathy; R33.8 Other retention of urine; E11.22 Type 2 diabetes mellitus with diabetic chronic kidney disease; N18.31 Chronic kidney disease, stage 3a; N52.01 Erectile dysfunction due to arterial insufficiency; N36.5 Urethral false passage; Z79.4 Long term (current) use of insulin; Z79.82 Long term (current) use of aspirin; Z79.899 Other long term (current) drug therapy
CPT/HCPCS: 88305; J1100; J1956; J2250; J2370; J2405; J2704; J2765